=== PATIENT | female | born 1985 | race Two or more races ===

== ENCOUNTER 2020-04-28 00:46 | Emergency (ER) | payer MEDICAID ==
[2020-04-28] MEDS ORDERED: MAG HYDROX/AL HYDROX/SIMETH SUSP 30 ML UDCUP PO ONE (01:06)
--- NOTE | 2020-04-28 01:07 | ER Document Report ---
ED Medical Screen (RME) - General Stated Complaint: UPPER ABDOMINAL PAIN Time Seen by Provider: 04/28/20 01:00 Mode of Arrival: Ambulatory Information source: Patient Notes: Patient presents complaining of epigastric abdominal pain for the past 6 days. Patient is currently 20 weeks G1, P0. Patient denies any fever, nausea or vomiting. Patient reports that food does not improve or worsen her pain symptoms. Patient has been taking Pepcid without improvement of her symptoms. I have greeted and performed a rapid initial assessment of this patient. A comprehensive ED assessment and evaluation of the patient, analysis of test results and completion of the medical decision making process will be conducted by additional ED providers. Physical Exam - Abdominal Inspection: Gravid female Tenderness: Tender - Epigastric
[2020-04-28 02:44] LABS: ABSOLUTE EOSINOPHILS # (AUTO) 0.1 10^3/uL (0.0-0.6); ABSOLUTE LYMPHOCYTES (AUTO) 1.9 10^3/uL (0.5-4.7); ABSOLUTE MONOCYTES (AUTO) 0.5 10^3/uL (0.1-1.4); ABSOLUTE NEUT (AUTO) 5.3 10^3/uL (1.7-8.2); BASOPHILS % (AUTO) 0.5 % (0-2); EOSINOPHILS % (AUTO) 1.8 % (0-6); HEMATOCRIT 33.1 % (36.0-47.0); HEMOGLOBIN 11.6 g/dL (12.0-15.5); LYMPHOCYTES % (AUTO) 24.4 % (13-45); MEAN CORPUSCULAR HEMOGLOBIN 32.8 pg (27.0-33.4); MEAN CORPUSCULAR HGB CONC 35.2 g/dL (32.0-36.0); MEAN CORPUSCULAR VOLUME 93 fl (80-97); MONOCYTES % (AUTO) 6.8 % (3-13); PLATELET COUNT 235 10^3/uL (150-450); RED BLOOD COUNT 3.55 10^6/uL (3.72-5.28); RED CELL DISTRIBUTION WIDTH 13.5 % (11.5-14.0); SEGMENTED NEUTROPHILS % (AUTO) 66.5 % (42-78); TOTAL CELLS COUNTED % (AUTO) 100 %; WHITE BLOOD COUNT 7.9 10^3/uL (4.0-10.5)
[2020-04-28 02:57] LABS: ALBUMIN 3.7 g/dL (3.5-5.0); ALKALINE PHOSPHATASE 50 U/L (38-126); ANION GAP 11 (5-19); ASPARTATE AMINO TRANSFERASE 18 U/L (14-36); BILIRUBIN,TOTAL 0.2 mg/dL (0.2-1.3); BLOOD UREA NITROGEN 8 mg/dL (7-20); CALCIUM 9.7 mg/dL (8.4-10.2); CARBON DIOXIDE 21 mmol/L (22-30); CHLORIDE 106 mmol/L (98-107); GLUCOSE 107 mg/dL (75-110); POTASSIUM 4.3 mmol/L (3.6-5.0); TOTAL PROTEIN 6.6 g/dL (6.3-8.2)
--- NOTE | 2020-04-28 03:55 | ER Document Report ---
ED GI/ - General Chief Complaint: OB Problem (<20wks) Stated Complaint: UPPER ABDOMINAL PAIN Time Seen by Provider: 04/28/20 01:00 Primary Care Provider: LUZ ROSADO [Primary Care Provider] - Follow up as needed Mode of Arrival: Ambulatory Notes: Patient is a 34-year-old female, G1, P0 at 20 weeks gestation by first trimester ultrasound, but comes emergency department for chief complaint of epigastric abdominal discomfort for approximately 1 week. Symptoms come and go, she states that she feels "reflux" frequently with pain and burning. She states she is able to eat. Food does not significantly change her symptoms. She denies nausea, vomiting, fever/chills, mid to lower abdominal pain, vaginal bleeding or discharge. She is feeling baby move. She states she started taking Pepcid, she ran out, she refilled this [id number] but this does not seem to be helping like it was before. She reports normal bowel movements. She denies any surgeries. She denies smoking, alcohol, recreational drugs. She denies any daily medications. Patient speaks [place], her is at bedside and she requests the pump house operator, I offered an pump house operator but they declined. - HPI heart tones (bpm): 150 - Related Data Allergies/Adverse Reactions: No Known Allergies Allergy (Unverified 04/28/20 02:42) Home Medications: pepcid, vitamins, magnesium Past Medical History - General Information source: Patient - Social History Smoking Status: Never Smoker Frequency of alcohol use: None Drug Abuse: None Lives with: Family Family History: Reviewed & Not Pertinent - Medical History Medical History: Negative - Immunizations Immunizations up to date: Yes Hx Diphtheria, Pertussis, Tetanus Vaccination: Yes Review of Systems - Review of Systems Constitutional: No symptoms reported EENT: No symptoms reported Cardiovascular: No symptoms reported Respiratory: No symptoms reported Gastrointestinal: See HPI Genitourinary: No symptoms reported Female Genitourinary: No symptoms reported Musculoskeletal: No symptoms reported Skin: No symptoms reported Hematologic/Lymphatic: No symptoms reported Neurological/Psychological: No symptoms reported Physical Exam - Vital signs Vitals: Temp Pulse Resp BP Pulse Ox 97.2 F 84 20 100/74 98 04/28/20 01:03 04/28/20 01:03 04/28/20 01:03 04/28/20 01:03 04/28/20 01:03 - Notes Notes: GENERAL: Alert, interacts well. No acute distress. HEAD: Normocephalic, atraumatic. EYES: Pupils equal, round, and reactive to light. Extraocular movements intact. ENT: Oral mucosa moist, tongue midline. Oropharynx unremarkable. Airway patent. NECK: Full range of motion. Supple. Trachea midline. No lymphadenopathy. LUNGS: Clear to auscultation bilaterally, no wheezes, rales, or rhonchi. No respiratory distress. Non-tender chest wall. HEART: Regular rate and rhythm. No murmur ABDOMEN: Soft, non-tender. Gravid abdomen. No guarding or rigidity. Bowel sounds present in all 4 quadrants. EXTREMITIES: Moves all 4 extremities spontaneously. No edema, normal radial and dorsalis pedis pulses bilaterally. No cyanosis. BACK: no cervical, thoracic, lumbar midline tenderness. No saddle anesthesia, normal distal neurovascular exam. Moves all extremities in full range of motion. NEUROLOGICAL: Alert and oriented x3. Normal speech. Cranial nerves II through XII grossly intact. Strength 5/5 in all extremities. PSYCH: Normal affect, normal mood. SKIN: Warm, dry, normal turgor. No rashes or lesions noted. Course - Re-evaluation Re-evalutation: Abdomen is soft and benign. Patient was given Maalox from triage and patient and both state that she has been much better since this time with no current complaints. She has no complaints in regards to the . CBC, chemistry, lipase, urinalysis, EKG all reviewed from triage and unremarkable. Based on her evaluation, resolution with Maalox, overall presentation I have low suspicion of acute abdomen or obstetric emergency. Provided with Maalox on request, discussed follow-up, recommendations, return precautions. Specifically recommended patient stop eating spicy food which she admits she will try to do. Stable and well-appearing at time of discharge. - Vital Signs Vital signs: Temp Pulse Resp BP Pulse Ox 98.2 F 89 20 93/58 L 95 04/28/20 04:00 04/28/20 04:00 04/28/20 01:03 04/28/20 04:00 04/28/20 04:00 - Laboratory Result Diagrams: 04/28/20 02:34 04/28/20 02:34 Laboratory results interpreted by me: 04/28/20 04/28/20 02:34 02:34 RBC 3.55 L Hgb 11.6 L Hct 33.1 L Carbon Dioxide 21 L Creatinine 0.48 L - EKG Interpretation by Me Additional EKG results interpreted by me: EKG shows sinus rhythm at a rate of 97, QTc 452, no T wave inversions or ST segment changes in consecutive leads, machine reads as normal Discharge - Discharge Clinical Impression: Upper abdominal pain GERD (gastroesophageal reflux disease) Qualifiers: Esophagitis presence: esophagitis presence not specified Qualified Code(s): K21.9 - Gastro-esophageal reflux disease without esophagitis Condition: Stable Disposition: HOME, SELF-CARE Additional Instructions: Your tests are normal today. I believe your pain is caused by reflux (inflammation in the upper part of your intestinal tract). Take the famotidine, take the maalox if you need it, and stop the spicy foods. Hopefully your reflux will stop after , if not consider an ultrasound of your abdomen. Follow up with your primary care provider. Come back if you are worse (vomiting, if the pain gets much worse, if you get a fever, or if something is not right). Prescriptions: Famotidine [Acid Controller] 20 mg PO BID 10 Days #20 tablet Mag Hydrox/Al Hydrox/Simeth [Maalox Plus Susp 30 Udcup] 30 ml PO Q6 PRN #30 udc PRN Reason: Heartburn Referrals: LOCALMD,NO [Primary Care Provider] - Follow up as needed
[2020-04-28 04:00] VITALS: BP 93/58
--- NOTE | 2020-04-28 09:07 | EKG REPORT ---
SEVERITY:- NORMAL ECG - SINUS RHYTHM : Confirmed by: Gregg Iyer MD 28-Apr-2020 09:06:45
== END 2020-04-28 04:06 | disposition home or self-care (01) ==
LOC: ER 00:46
DX: O26.892 Other specified pregnancy related conditions, second trimester (principal); K21.9 Gastro-esophageal reflux disease without esophagitis; R10.13 Epigastric pain; Z3A.20 20 weeks gestation of pregnancy
CPT/HCPCS: 93005; 99284; 36415; 83690; 85025; 80053; 93010; J3490